=== PATIENT | male | born 1980 | race Caucasian/White ===

== ENCOUNTER 2016-12-12 14:38 | Emergency (ER) | payer OTHER ==
[~2016-12-12 14:38] MED LIST: ASPIRIN EC81 MG PO; BACTRIM D.S. TAB1 EA PO; COREG 3.125M3.125 MG PO; DOXYCYCLINE HY100 MG PO; FISH OIL 1,0001 EACH PO; GLUCOPHAGE 500500 MG PO; NORCO 7.5-3251 EACH PO; QUESTRAN PACKET4 GM PO; TOPAMAX25 MG PO; VISTARIL25 MG PO; VITAMIN D2000 UNI1 PO; ZOCOR20 MG PO
[2016-12-12 15:25] LABS: HEMOGLOBIN 16.3 gm/dl (14.0-17.5); RED BLOOD COUNT 5.3 M/UL (4.20-5.50); WHITE BLOOD COUNT 7.2 K/UL (4.5-11.0)
[2016-12-12 15:42] LABS: BUN/CREATININE RATIO 15 (0-10)
[2017-04-24] MEDS ORDERED: FOLIC ACID1 MG PO (00:16)
[2017-04-24] MEDS ORDERED: OMEPRAZOLE40 MG PO (00:17)
[2017-04-24] MEDS ORDERED: KEFLEX500 MG PO (00:17)
[2017-04-24] MEDS ORDERED: AMARYL 2MG TABLE2 MG PO (00:17)
[2017-04-26] MEDS ORDERED: LACTINEX TABLET1 EA PO (15:57)
[2017-04-26] MEDS ORDERED: DICLOXACILLIN500 MG PO (15:57)
[2017-04-26] MEDS ORDERED: VISTARIL25 MG PO (16:05)
== END 2016-12-12 16:45 | disposition home or self-care (01) ==
LOC: ER1 14:38
PROVIDERS: Physician Assistant Medical
DX: J10.1 Influenza due to other identified influenza virus with other respiratory manifestations (principal); R59.0 Localized enlarged lymph nodes; E11.9 Type 2 diabetes mellitus without complications; I10 Essential (primary) hypertension; F17.210 Nicotine dependence, cigarettes, uncomplicated; Z88.0 Allergy status to penicillin; Z90.49 Acquired absence of other specified parts of digestive tract; Z79.84 Long term (current) use of oral hypoglycemic drugs; Z79.82 Long term (current) use of aspirin; Z79.899 Other long term (current) drug therapy
CPT/HCPCS: 36415; 71020; 80053; 85025; 87081; 87880; 99284

== ENCOUNTER → 2016-12-29 | Outpatient (CLI) | payer OTHER ==
[~2016-12-29] MED LIST changes: +AMARYL 2MG TABLE2 MG PO; +DICLOXACILLIN500 MG PO; +FOLIC ACID1 MG PO; +KEFLEX500 MG PO; +LACTINEX TABLET1 EA PO; +OMEPRAZOLE40 MG PO
== END ==
LOC: CT 09:19
DX: R59.0 Localized enlarged lymph nodes (principal); R91.1 Solitary pulmonary nodule
CPT/HCPCS: 71260; Q9962

== ENCOUNTER 2017-01-25 02:11 | Emergency (ER) | payer OTHER ==
[~2017-01-25 02:11] MED LIST changes: -AMARYL 2MG TABLE2 MG PO; -DICLOXACILLIN500 MG PO; -FOLIC ACID1 MG PO; -KEFLEX500 MG PO; -LACTINEX TABLET1 EA PO; -OMEPRAZOLE40 MG PO
[2017-04-24] MEDS ORDERED: FOLIC ACID1 MG PO (00:16)
[2017-04-24] MEDS ORDERED: OMEPRAZOLE40 MG PO (00:17)
[2017-04-24] MEDS ORDERED: AMARYL 2MG TABLE2 MG PO (00:17)
[2017-04-24] MEDS ORDERED: KEFLEX500 MG PO (00:17)
[2017-04-26] MEDS ORDERED: DICLOXACILLIN500 MG PO (15:57)
[2017-04-26] MEDS ORDERED: LACTINEX TABLET1 EA PO (15:57)
[2017-04-26] MEDS ORDERED: VISTARIL25 MG PO (16:05)
== END 2017-01-25 06:20 | disposition home or self-care (01) ==
LOC: ER1 02:11
DX: L02.412 Cutaneous abscess of left axilla (principal); E11.9 Type 2 diabetes mellitus without complications; F17.210 Nicotine dependence, cigarettes, uncomplicated; Z79.84 Long term (current) use of oral hypoglycemic drugs; Z90.49 Acquired absence of other specified parts of digestive tract; Z88.0 Allergy status to penicillin
CPT/HCPCS: 10061; 87070; 87077; 87186; 87205; 99283

== ENCOUNTER 2017-01-29 17:54 | Emergency (ER) | payer OTHER ==
[2017-04-24] MEDS ORDERED: FOLIC ACID1 MG PO (00:16)
[2017-04-24] MEDS ORDERED: OMEPRAZOLE40 MG PO (00:17)
[2017-04-24] MEDS ORDERED: AMARYL 2MG TABLE2 MG PO (00:17)
[2017-04-24] MEDS ORDERED: KEFLEX500 MG PO (00:17)
[2017-04-26] MEDS ORDERED: DICLOXACILLIN500 MG PO (15:57)
[2017-04-26] MEDS ORDERED: LACTINEX TABLET1 EA PO (15:57)
[2017-04-26] MEDS ORDERED: VISTARIL25 MG PO (16:05)
== END 2017-01-29 18:50 | disposition home or self-care (01) ==
LOC: ER1 17:54
DX: Z48.01 Encounter for change or removal of surgical wound dressing (principal); F17.210 Nicotine dependence, cigarettes, uncomplicated; E11.9 Type 2 diabetes mellitus without complications; Z88.0 Allergy status to penicillin; Z79.84 Long term (current) use of oral hypoglycemic drugs
CPT/HCPCS: 99282

== ENCOUNTER 2021-02-04 12:16 | Emergency (ER) | payer OTHER ==
[~2021-02-04 12:16] MED LIST changes: +AMARYL 2MG TABLE2 MG PO; +BACTRIM DS TAB1 EACH PO; +DICLOXACILLIN500 MG PO; +FISH OIL 1,2001 EACH PO; +FOLIC ACID1 MG PO; +IBUPROFEN600 MG PO; +IBUPROFEN800 MG PO; +KEFLEX CAP 500500 MG PO; +KEFLEX500 MG PO; +LACTINEX TABLET1 EA PO; +OMEPRAZOLE40 MG PO; +PERCOCET 5/325 T1 EA PO; +TOPAMAX50 MG PO; +VIBRAMYCIN100 MG PO; +VITAMIN D250000 UNIT PO; +ZANAFLEX4 MG PO; +ZOVIRAX 200 MG200 MG PO
[2021-02-04 13:33] LABS: HEMOGLOBIN 16.4 gm/dl (14.0-17.5); RED BLOOD COUNT 5.45 M/UL (4.20-5.50); WHITE BLOOD COUNT 6.9 K/UL (4.5-11.0)
[2021-02-04 14:03] LABS: BUN/CREATININE RATIO 17 (0-10)
[2021-02-04] MEDS ORDERED: TORADOL 10 MG T10 MG PO (15:22)
[2021-02-04] MEDS ORDERED: CEFUROXIME500 MG PO (15:22)
[2021-02-04] MEDS ORDERED: FLOMAX 0.4 MG0.4 MG PO (15:22)
[2021-02-04] MEDS ORDERED: ONDANSETRON ODT4 MG SL (15:22)
== END 2021-02-04 15:45 | disposition home or self-care (01) ==
LOC: ER1 12:16
PROVIDERS: Physician Assistant
DX: N13.2 Hydronephrosis with renal and ureteral calculous obstruction (principal); E11.9 Type 2 diabetes mellitus without complications; Z90.49 Acquired absence of other specified parts of digestive tract; Z88.0 Allergy status to penicillin; F17.290 Nicotine dependence, other tobacco product, uncomplicated
CPT/HCPCS: 80053; 81001; 85025; 87086; 96374; 96375; 99284; J1885; J2405; J7030

== ENCOUNTER → 2021-08-08 | Outpatient (CLI) | payer OTHER ==
[~2021-08-08] MED LIST changes: +CEFUROXIME500 MG PO; +FLOMAX 0.4 MG0.4 MG PO; +ONDANSETRON ODT4 MG SL; +TORADOL 10 MG T10 MG PO
== END ==
LOC: RAD 08:33
DX: R13.10 Dysphagia, unspecified (principal)
CPT/HCPCS: 74221